=== PATIENT | male | born 1970 | race African-American/Black ===

== ENCOUNTER 2019-07-19 10:00 | Inpatient (IN) | payer MEDICARE, MEDICAID ==
[2019-08-16] MEDS ORDERED: CEFAZOLIN INJ 1 GM VIAL IV PRN (05:00)
[2019-08-16] MEDS ORDERED: BUPIVACAINE INJ/PF LIPOSOME/PF 266 MG/20 ML SDV INJ PRN (05:00)
[2019-08-16] MEDS ORDERED: LIDOCAINE 0.5% INJ-PF (5 MG/ML) 50 ML SDV SUBCUT PRN (05:00)
[2019-08-16] MEDS ORDERED: IBUPROFEN 800 MG in NORMAL SALINE 250 ML IV PRN (05:00)
[2019-08-16] MEDS ORDERED: VANCOMYCIN HCL 1,000 MG in DEXTROSE 5%-WATER 250 ML IV PRN (05:00)
[2019-08-16] MEDS ORDERED: LACTATED RINGERS 1000 ML IV PRN (05:00)
[2019-08-16] MEDS ORDERED: PANTOPRAZOLE SODIUM 20 MG TABLET.DR PO PRN (05:00)
[2019-08-16] MEDS ORDERED: OXYCODONE HCL SR 10 MG TABLET PO PRN (05:00)
[2019-08-16] MEDS ORDERED: PANTOPRAZOLE SODIUM 20 MG TABLET.DR PO ONE (05:58)
[2019-08-16] MEDS ORDERED: OXYCODONE HCL SR 10 MG TABLET PO ONE (05:58)
[2019-08-16] MEDS ORDERED: CEFAZOLIN 1 GM/D5W RTU 1 GM/50 ML RTUPB IV ONE (05:58)
[2019-08-16] MEDS ORDERED: VANCOMYCIN HCL INJ 1000 MG VIAL ONE (06:23)
[2019-08-16] MEDS ORDERED: ONDANSETRON HCL INJ/PF 4 MG/2 ML SDV ONE (07:05)
[2019-08-16] MEDS ORDERED: TRANEXAMIC ACID INJ/PF 1,000 MG/10 ML SDV ONE ×2 (07:05→10:30)
[2019-08-16] MEDS ORDERED: FENTANYL CITRATE INJ/PF 100 MCG/2 ML AMPUL ONE ×2 (07:05→09:51)
[2019-08-16] MEDS ORDERED: MIDAZOLAM 2 MG/2 ML INJ ONE (07:05)
[2019-08-16] MEDS ORDERED: PROPOFOL INJ 200 MG/20 ML VIAL IV ONE (07:06)
[2019-08-16] MEDS ORDERED: LIDOCAINE 2% INJ (20 MG/ML) 20 ML MDV ONE (07:07)
[2019-08-16] MEDS ORDERED: BUPIVACAINE INJ/PF LIPOSOME/PF 266 MG/20 ML SDV ONE (07:08)
[2019-08-16] MEDS ORDERED: MORPHINE SULFATE 10 MG/ML INJ IV PRN (07:55)
[2019-08-16] MEDS ORDERED: ONDANSETRON HCL INJ/PF 4 MG/2 ML SDV IV PRN ×2 (07:55→08:34)
[2019-08-16] MEDS ORDERED: MEPERIDINE HCL/PF INJ 25 MG/1 ML DISP.SYRIN IV PRN (07:55)
[2019-08-16] MEDS ORDERED: PROMETHAZINE HCL INJ 25 MG/1 ML VIAL IV PRN (07:55)
[2019-08-16] MEDS ORDERED: FENTANYL CITRATE INJ/PF 100 MCG/2 ML AMPUL IV PRN ×2 (07:55)
[2019-08-16] MEDS ORDERED: DIPHENHYDRAMINE HCL 50 MG/ML VIAL IV PRN ×2 (07:55→08:34)
[2019-08-16] MEDS ORDERED: ONDANSETRON 4 MG TAB.RAPDIS PO PRN (08:34)
[2019-08-16] MEDS ORDERED: MAG HYDROX/AL HYDROX/SIMETH SUSP 30 ML UDCUP PO PRN (08:34)
[2019-08-16] MEDS ORDERED: ZOLPIDEM TARTRATE 5 MG TABLET PO PRN (08:34)
--- NOTE | 2019-08-16 08:34 | Operative Report ---
Operative Report DATE OF SURGERY: 08/16/19 PREOPERATIVE DIAGNOSIS: Right hip avascular necrosis OPERATION: Right hip arthroplasty SURGEON: BHARTI DAVID ANESTHESIA: Spinal TISSUE REMOVED OR ALTERED: Femoral head to pathology ESTIMATED BLOOD LOSS: 50 PROCEDURE: Implants used: Femur: Stout Accolade 2 stem, size 5 Acetabular shell: 52 mm shell Liner: 36 mm flat cross-link polyethylene liner Head: 6 mm chrome cobalt head -5 neck The patient is placed in a left lateral decubitus position on the operating table. The right lower extremity and hindquarter is prepped and draped in a sterile fashion. A curvilinear incision was made over the greater trochanter a posterior approach the hip was taken. The femoral head is dislocated and the femoral neck transected using an oscillating saw. Attention was next turned to the acetabulum. Soft tissues cleared off the acetabulum using electrocautery. The acetabulum was then prepared using a series of hemispherical reamers until a 52 millimeters reamer is seated. Subsequently a T2 millimeters Stout titanium hemispherical shell is impacted into position. A standard flat 36 millimeters cross-link liner is impacted into the shell. Attention was next turned to the femur. Access is gained to the femoral canal using a box osteotome to the piriformis fossa. The femur is then prepared using a series of broaches until a number 5 broach is seated. A trial reduction was now performed using a 36 millimeters head with -5 neck. Preoperative leg length was recreated and is excellent anterior posterior stability. A decision was made to proceed with the above construct. All trial implants were removed. The wound is irrigated with pulsed lavage. A number 5 stem is impacted into the femoral canal. A trial reduction was again performed with a 36 mm head and a -5 neck. Findings as previously. The hip was dislocated one last time and the final chrome-cobalt head is impacted onto the trunnion. The hip was reduced. Wound is copiously irrigated with pulsed lavage. Sent closed in layers using interrupted Vicryl followed by craig. A sterile dressing is applied and the patient's returned to recovery room in satisfactory patient.
--- NOTE | 2019-08-16 09:33 | RADIOLOGY REPORT (SQ) ---
EXAM DESCRIPTION: PELVIS AP COMPLETED DATE/TIME: 08/16/2019 9:12 am REASON FOR STUDY: Post Op Long Cassette in PACU M87.859 OTHER OSTEONECROSIS, UNSPECIFIED FEMUR COMPARISON: None. NUMBER OF VIEWS: One view TECHNIQUE: AP views of the pelvis and right hip were obtained. LIMITATIONS: None. FINDINGS: MINERALIZATION: Normal. HIPS: Status post right MARIELY. The hardware is in anatomic alignment. There is no periprosthetic frac ture. There is no acute abnormality of the contralateral side. PELVIS AND SACRUM: Intact. PUBIS AND ISCHIUM: The ilioischial and iliopectineal lines are intact. There is no diastasis of the pubic symphysis. LOWER LUMBAR SPINE: Limited evaluation. SOFT TISSUES: Subcutaneous emphysema lateral to the right femur. OTHER: No other finding. IMPRESSION: Uncomplicated right MARIELY with expected immediate postoperative findings. TECHNICAL DOCUMENTATION: JOB ID: [id number] [employer]- All Rights Reserved Reading location - IP/workstation name: [email or web address]
[2019-08-16] MEDS: FENTANYL CITRATE INJ/PF 100 MCG/2 ML AMPUL IV PRN ×2 (09:55→10:46)
[2019-08-16] MEDS ORDERED: OXYCODONE HCL SR 10 MG TABLET PO SCH (10:00)
[2019-08-16] MEDS ORDERED: TRANEXAMIC ACID INJ/PF 1,000 MG/10 ML SDV IV ONE ×2 (10:30→15:00)
[2019-08-16] MEDS: PRENATAL VITAMIN W DHA CAPSULE PO SCH (13:45)
[2019-08-16] MEDS: PREGABALIN 75 MG CAPSULE PO SCH ×2 (13:45→17:48)
[2019-08-16] MEDS: SENNOSIDES/DOCUSATE 8.6-50 MG 1 EACH TABLET PO SCH ×2 (13:45→17:48)
[2019-08-16] MEDS: OXYCODONE HCL IR 5 MG TABLET PO PRN ×2 (13:57→22:32)
[2019-08-16] MEDS: NICOTINE 21 MG/24 HR PATCH.TD24 TD SCH (15:56)
[2019-08-16] MEDS: OXYCODONE HCL SR 10 MG TABLET PO SCH (17:49)
[2019-08-16] MEDS: IBUPROFEN 800 MG in NORMAL SALINE 250 ML IV SCH (17:49)
[2019-08-16] MEDS ORDERED: VANCOMYCIN HCL 1,000 MG in DEXTROSE 5%-WATER 250 ML IV ONE (20:30)
[2019-08-16] MEDS: RIVAROXABAN 10 MG TABLET PO SCH (22:32)
[2019-08-16] MEDS: RINGERS SOLUTION,LACTATED 1,000 ML IV PRN (22:38)
[2019-08-17] MEDS: IBUPROFEN 800 MG in NORMAL SALINE 250 ML IV SCH ×3 (04:30→19:44)
[2019-08-17 05:27] LABS: HEMATOCRIT 37.2 % (37.9-51.0); HEMOGLOBIN 12.5 g/dL (13.5-17.0); MEAN CORPUSCULAR HEMOGLOBIN 33.7 pg (27.0-33.4); MEAN CORPUSCULAR HGB CONC 33.5 g/dL (32.0-36.0); MEAN CORPUSCULAR VOLUME 101 fl (80-97); PLATELET COUNT 157 10^3/uL (150-450); RED CELL DISTRIBUTION WIDTH 13.3 % (11.5-14.0); WHITE BLOOD COUNT 8.8 10^3/uL (4.0-10.5)
[2019-08-17] MEDS: OXYCODONE HCL SR 10 MG TABLET PO SCH ×2 (05:44→19:41)
[2019-08-17] MEDS: PANTOPRAZOLE SODIUM 40 MG TABLET.DR PO SCH (05:45)
[2019-08-17 05:55] LABS: BLOOD UREA NITROGEN 9 mg/dL (7-20); CALCIUM 8.6 mg/dL (8.4-10.2); CHLORIDE 102 mmol/L (98-107); GLUCOSE 97 mg/dL (75-110); POTASSIUM 4.5 mmol/L (3.6-5.0)
[2019-08-17 06:25] LABS: CARBON DIOXIDE 31 mmol/L (22-30)
[2019-08-17 06:27] LABS: ANION GAP 5 (5-19)
[2019-08-17] MEDS ORDERED: HYDROXYZINE PAMOATE 25 MG CAPSULE PO PRN (07:24)
--- NOTE | 2019-08-17 07:27 | PDOC PROGRESS REPORT ---
Subjective Progress Note for:: 08/17/19 Reason For Visit: M87.859 OTHER OSTEONECROSIS, UNSPECIFIED FEMUR 49-year-old black male status post right hip arthroplasty postop day 1 for avascular porosis. Interval history is notable for persistent wound drainage presumably from a hematoma. Physical Exam Vital Signs: Temp Pulse Resp BP Pulse Ox 36.6 C 68 17 108/65 90 L 08/16/19 22:59 08/16/19 22:59 08/16/19 22:59 08/16/19 22:59 08/16/19 22:59 Intake & Output 08/16/19 08/17/19 08/18/19 06:59 06:59 06:59 Intake Total 2570 Output Total 1640 Balance 930 Weight 70.31 kg 69.5 kg General appearance: PRESENT: mild distress, thin Head exam: PRESENT: normocephalic Respiratory exam: PRESENT: unlabored Cardiovascular exam: PRESENT: RRR Vascular exam: PRESENT: normal capillary refill GI/Abdominal exam: PRESENT: soft Rectal exam: PRESENT: deferred Extremities exam: PRESENT: other - Right hip dressing with traded from blood suggesting underlying hematoma. This is cleansed with peroxide and a fresh dressing is placed. Results Laboratory Results: 08/17/19 04:58 08/17/19 04:58 08/16/19 08/17/19 08/17/19 06:50 04:58 04:58 WBC 8.8 RBC 3.70 L Hgb 12.5 L Hct 37.2 L MCV 101 H MCH 33.7 H MCHC 33.5 RDW 13.3 Plt Count 157 Sodium 138.2 Potassium 4.5 Chloride 102 Carbon Dioxide 31 H Anion Gap 5 BUN 9 Creatinine 0.95 Est GFR ( Amer) > 60 Glucose 97 Calcium 8.6 Blood Type A POSITIVE Antibody Screen NEGATIVE Impressions: Pelvis X-Ray 08/16/19 08:36 IMPRESSION: Uncomplicated right MARIELY with expected immediate postoperative findings. Status: Imported from PACS Assessment & Plan - Diagnosis (1) Avascular necrosis of bone of right hip Is this a current diagnosis for this admission?: Yes Plan: At this point the patient will have his labs checked particularly with respect to hemoglobin and coagulation factors. Patient be administered an additional gram of trans-examined acid. Dressing changes as needed. Mobilize with physical therapy today and weightbearing as tolerated basis. - Time Time Spent with patient: 15-24 minutes Anticipated discharge: Home with Homehealth Within: within 24 hours
[2019-08-17] MEDS: ACETAMINOPHEN 325 MG TABLET PO PRN ×2 (08:58→15:32)
[2019-08-17] MEDS: OXYCODONE HCL IR 5 MG TABLET PO PRN ×2 (08:59→15:32)
[2019-08-17] MEDS ORDERED: TRANEXAMIC ACID INJ/PF 1,000 MG/10 ML SDV IV ONE ×2 (09:00→10:30)
[2019-08-17] MEDS: PREGABALIN 75 MG CAPSULE PO SCH ×2 (09:00→19:43)
[2019-08-17] MEDS: NICOTINE 21 MG/24 HR PATCH.TD24 TD SCH (09:01)
[2019-08-17] MEDS: SENNOSIDES/DOCUSATE 8.6-50 MG 1 EACH TABLET PO SCH ×2 (09:01→19:41)
[2019-08-17] MEDS: PRENATAL VITAMIN W DHA CAPSULE PO SCH (09:02)
[2019-08-17] MEDS ORDERED: CETIRIZINE 10 MG TABLET PO SCH (10:00)
[2019-08-17] MEDS: FLUTICASONE NASAL SPRAY 50 MCG/SPRY 120 SPRAY/16 GM NAREB SCH ×2 (10:56→23:36)
[2019-08-17 13:32] LABS: PROTHROMBIN TIME 15.3 SEC (11.4-15.4)
[2019-08-17 13:33] LABS: PARTIAL THROMBOPLASTIN TIME 34.7 SEC (23.5-35.8)
[2019-08-17] MEDS ORDERED: CHLORPROMAZINE HCL INJ 25 MG/1 ML AMPULE IM PRN (15:10)
[2019-08-17] MEDS: OLANZAPINE 5 MG TABLET PO SCH ×2 (15:32→23:33)
[2019-08-17] MEDS ORDERED: (PENDING PHARMACY ID) (Prazosin Hcl [Prazosin Hcl] 2 MG) PO SCH (22:00)
[2019-08-17] MEDS ORDERED: CLONIDINE HCL 0.1 MG TABLET PO SCH (22:00)
[2019-08-17] MEDS ORDERED: BENZTROPINE MESYLATE 1 MG TABLET PO SCH (22:00)
[2019-08-17] MEDS ORDERED: CARIPRAZINE HCL 1.5 MG PO SCH (22:00)
[2019-08-17] MEDS: RIVAROXABAN 10 MG TABLET PO SCH (23:34)
[2019-08-17] MEDS: RINGERS SOLUTION,LACTATED 1,000 ML IV PRN (23:36)
[2019-08-18] MEDS: IBUPROFEN 800 MG in NORMAL SALINE 250 ML IV SCH (02:20)
[2019-08-18] MEDS: PANTOPRAZOLE SODIUM 40 MG TABLET.DR PO SCH (05:27)
[2019-08-18] MEDS: OXYCODONE HCL SR 10 MG TABLET PO SCH (05:27)
[2019-08-18 05:51] LABS: HEMATOCRIT 35.5 % (37.9-51.0); HEMOGLOBIN 11.8 g/dL (13.5-17.0); MEAN CORPUSCULAR HEMOGLOBIN 33.5 pg (27.0-33.4); MEAN CORPUSCULAR HGB CONC 33.3 g/dL (32.0-36.0); MEAN CORPUSCULAR VOLUME 101 fl (80-97); PLATELET COUNT 138 10^3/uL (150-450); RED BLOOD COUNT 3.53 10^6/uL (4.35-5.55); RED CELL DISTRIBUTION WIDTH 13.2 % (11.5-14.0); WHITE BLOOD COUNT 9.7 10^3/uL (4.0-10.5)
[2019-08-18 06:17] VITALS: BP 100/60
--- NOTE | 2019-08-18 06:30 | PDOC DISCHARGE SUMMARY ---
Impression - Admit/DC Date/PCP Admission Date/Primary Care Provider: 08/16/19 05:43 JASPREET AVILES PA-C Discharge Date: 08/18/19 - Discharge Diagnosis (1) Avascular necrosis of bone of right hip Is this a current diagnosis for this admission?: Yes (2) Psychiatric disorder Is this a current diagnosis for this admission?: Yes - Additional Information Resuscitation Status: Full Code Discharge Diet: As Tolerated Discharge Activity: Activity As Tolerated, Balance Activity w/Rest, No Driving, Slowly Increase Activity, No tub bath Referrals: BHARTI DAVID MD [ACTIVE STAFF] - 08/31/19 9:30 am Home Medications: Cariprazine HCl [Vraylar] 1.5 mg PO QHS 08/12/19 Cetirizine HCl [Zyrtec 10 mg Tablet] 10 mg PO DAILY 08/12/19 Hydroxyzine Pamoate [Vistaril 25 mg Capsule] 50 mg PO HSP PRN 08/12/19 Oxycodone HCl [Oxy-Ir 5 mg Tablet] 5 mg PO Q8HP PRN 08/12/19 Prazosin HCl 2 mg PO QHS 08/12/19 Fluticasone Propionate [Flonase Nasal Merced 50 Mcg/Merced 16 gm] 1 spray NAREB Q12 08/16/19 Meloxicam [Mobic 7.5 mg Tablet] 7.5 mg PO BID 08/16/19 History of Present Illiness History of Present Illness: EPIFANIO TRINH is a 49 year old male The patient is a 49-year-old black male with progressive right hip pain and functional disability secondary to avascular necrosis. Patient is admitted for elective right hip arthroplasty. Hospital Course Hospital Course: Patient is admitted through the operating room where he undergoes uncomplicated right hip arthroplasty. Is returned to the floor in satisfactory condition. Initially there is a fair amount of bleeding from the wound and dressing is changed multiple times to accommodate for this. On the first postoperative day the patient exhibits some behavioral problems and this is probably because his psych meds were not adequately reported and restarted postoperatively. A psychiatric consult was obtained and medications were reinstated and the patient subsequently did better from a behavioral standpoint. On the second postoperative morning his right hip dressing is clean dry and intact. He is able to stand and take several steps even without the walker although this was not advised. Physical Exam Vital Signs: Temp Pulse Resp BP Pulse Ox 36.9 C 75 16 100/60 96 08/17/19 23:30 08/17/19 23:30 08/17/19 23:30 08/17/19 23:30 08/17/19 23:30 Intake & Output 08/16/19 08/17/19 08/18/19 06:59 06:59 06:59 Intake Total 3570 2000 Output Total 1640 1100 Balance 1930 900 Weight 70.31 kg 69.5 kg 70.2 kg General appearance: PRESENT: no acute distress, mild distress Head exam: PRESENT: normocephalic Respiratory exam: PRESENT: unlabored Cardiovascular exam: PRESENT: RRR Pulses: PRESENT: +1 pedal pulses bilateral GI/Abdominal exam: PRESENT: soft Rectal exam: PRESENT: deferred Musculoskeletal exam: PRESENT: other - Right hip dressing changed on the second postoperative morning. Is clean dry and intact a clean OpSite is placed. Leg lengths equal. Distal neurovascular examination is intact. Neurological exam: PRESENT: alert, awake, oriented to person, oriented to place, oriented to time, oriented to situation. ABSENT: motor sensory deficit Psychiatric exam: PRESENT: agitated Skin exam: PRESENT: dry, intact, warm. ABSENT: cyanosis, rash Results Laboratory Results: WBC 8.8 10^3/uL (4.0-10.5) 08/17/19 04:58 RBC 3.70 10^6/uL (4.35-5.55) L 08/17/19 04:58 Hgb 12.5 g/dL (13.5-17.0) L 08/17/19 04:58 Hct 37.2 % (37.9-51.0) L 08/17/19 04:58 MCV 101 fl (80-97) H 08/17/19 04:58 MCH 33.7 pg (27.0-33.4) H 08/17/19 04:58 MCHC 33.5 g/dL (32.0-36.0) 08/17/19 04:58 RDW 13.3 % (11.5-14.0) 08/17/19 04:58 Plt Count 157 10^3/uL (150-450) 08/17/19 04:58 PT 15.3 SEC (11.4-15.4) 08/17/19 12:51 INR 1.20 08/17/19 12:51 APTT 34.7 SEC (23.5-35.8) 08/17/19 12:51 Sodium 138.2 mmol/L (137-145) 08/17/19 04:58 Potassium 4.5 mmol/L (3.6-5.0) 08/17/19 04:58 Chloride 102 mmol/L (98-107) 08/17/19 04:58 Carbon Dioxide 31 mmol/L (22-30) H 08/17/19 04:58 Anion Gap 5 (5-19) 08/17/19 04:58 BUN 9 mg/dL (7-20) 08/17/19 04:58 Creatinine 0.95 mg/dL (0.52-1.25) 08/17/19 04:58 Est GFR ( Amer) > 60 (>60) 08/17/19 04:58 Est GFR (MDRD) Non-Af > 60 (>60) 08/17/19 04:58 Glucose 97 mg/dL (75-110) 08/17/19 04:58 Calcium 8.6 mg/dL (8.4-10.2) 08/17/19 04:58 Blood Type A POSITIVE 08/16/19 06:50 Antibody Screen NEGATIVE 08/16/19 06:50 Impressions: Pelvis X-Ray 08/16/19 08:36 IMPRESSION: Uncomplicated right MARIELY with expected immediate postoperative findings. Plan Plan of Treatment: Patient be discharged home on a weightbearing as tolerated basis with home health services and DME. Follow-up with Dr. [facility] for surgery in 2 weeks for wound inspection. Stroke Is this a Stroke Patient?: No Stroke Pt being discharged on Anti-thrombolytic therapy?: Yes Acute Heart Failure - Is this a Heart Failure Patient?: No
[2019-08-18] MEDS: OLANZAPINE 5 MG TABLET PO SCH (09:13)
== END 2019-08-18 09:20 | disposition home health service (06) | DRG 470 ==
LOC: INOR 08-16 05:43 → 4N 08-16 12:38
PROVIDERS: ADMIT Orthopaedic Surgery; ATTEND Orthopaedic Surgery
PROC: 0SR902Z Replacement of Right Hip Joint with Metal on Polyethylene Synthetic Substitute, Open Approach (ICD-10-PCS; principal; 2019-08-16 07:30)
DX: M87.851 Other osteonecrosis, right femur (principal); Z79.82 Long term (current) use of aspirin; F43.10 Post-traumatic stress disorder, unspecified; F32.9 Major depressive disorder, single episode, unspecified; F17.210 Nicotine dependence, cigarettes, uncomplicated; Z87.81 Personal history of (healed) traumatic fracture; Z79.899 Other long term (current) drug therapy
CPT/HCPCS: 01214; 36415; 72170; 80048; 85027; 85610; 85730; 86850; 86900; 86901; 88304; 88311; 94799; C1776; C9290; J0690; J1741; J2250; J2405; J2704; J3010; J3230; J3370; J3490; J7050; J7060; J7120

== ENCOUNTER → 2019-07-21 | Outpatient (CLI) | payer MEDICARE, MEDICAID ==
--- NOTE | 2019-07-21 12:34 | RADIOLOGY REPORT (SQ) ---
EXAM DESCRIPTION: CHEST PA/LATERAL COMPLETED DATE/TIME: 07/21/2019 12:26 pm REASON FOR STUDY: PRE-OP COMPARISON: 04/15/2019 EXAM PARAMETERS: NUMBER OF VIEWS: two views TECHNIQUE: Digital Frontal and Lateral radiographic views of the chest acquired. RADIATION DOSE: NA LIMITATIONS: none FINDINGS: LUNGS AND PLEURA: No opacities, masses or pneumothorax. No pleural effusion. MEDIASTINUM AND HILAR STRUCTURES: No masses or contour abnormalities. HEART AND VASCULAR STRUCTURES: Heart normal size. No evidence for failure. BONES: No acute findings. HARDWARE: None in the chest. OTHER: No other significant finding. IMPRESSION: NO SIGNIFICANT RADIOGRAPHIC FINDING IN THE CHEST. TECHNICAL DOCUMENTATION: JOB ID: [id number] [employer]- All Rights Reserved Reading location - IP/workstation name: [email or web address]
[2019-07-21 13:09] LABS: ABSOLUTE LYMPHOCYTES (AUTO) 1.7 10^3/uL (0.5-4.7); ABSOLUTE MONOCYTES (AUTO) 0.5 10^3/uL (0.1-1.4); BASOPHILS % (AUTO) 0.5 % (0-2); EOSINOPHILS % (AUTO) 0.6 % (0-6); HEMATOCRIT 45.8 % (37.9-51.0); HEMOGLOBIN 15.3 g/dL (13.5-17.0); LYMPHOCYTES % (AUTO) 27.5 % (13-45); MEAN CORPUSCULAR HEMOGLOBIN 33.5 pg (27.0-33.4); MEAN CORPUSCULAR HGB CONC 33.3 g/dL (32.0-36.0); MEAN CORPUSCULAR VOLUME 101 fl (80-97); MONOCYTES % (AUTO) 8.5 % (3-13); PLATELET COUNT 184 10^3/uL (150-450); RED BLOOD COUNT 4.55 10^6/uL (4.35-5.55); RED CELL DISTRIBUTION WIDTH 13.5 % (11.5-14.0); SEGMENTED NEUTROPHILS % (AUTO) 62.9 % (42-78); TOTAL CELLS COUNTED % (AUTO) 100 %; WHITE BLOOD COUNT 6.3 10^3/uL (4.0-10.5)
[2019-07-21 13:11] LABS: APPEARANCE,URINE CLEAR; BILIRUBIN,URINE NEGATIVE (NEGATIVE); COLOR,URINE YELLOW; GLUCOSE, URINE NEGATIVE (NEGATIVE); KETONES,URINE 20 mg/dL (NEGATIVE); LEUKOCYTE ESTERASE,URINE NEGATIVE (NEGATIVE); NITRITE,URINE NEGATIVE (NEGATIVE); PROTEIN,URINE 30 mg/dL (NEGATIVE)
--- NOTE | 2019-07-21 13:26 | EKG REPORT ---
SEVERITY:- ABNORMAL ECG - SINUS RHYTHM CONSIDER ANTERIOR INFARCT : Confirmed by: Dennys Kline MD 21-Jul-2019 13:26:03
[2019-07-21 13:29] LABS: ANION GAP 10 (5-19); BLOOD UREA NITROGEN 12 mg/dL (7-20); CALCIUM 9.7 mg/dL (8.4-10.2); CARBON DIOXIDE 31 mmol/L (22-30); CHLORIDE 99 mmol/L (98-107); GLUCOSE 73 mg/dL (75-110); POTASSIUM 4.1 mmol/L (3.6-5.0)
== END ==
LOC: OD 11:58
PROVIDERS: ATTEND Orthopaedic Surgery
DX: Z01.812 Encounter for preprocedural laboratory examination (principal); Z01.811 Encounter for preprocedural respiratory examination; Z01.810 Encounter for preprocedural cardiovascular examination; M87.859 Other osteonecrosis, unspecified femur
CPT/HCPCS: 36415; 71046; 80048; 81001; 85025; 93005; 93010